=== PATIENT | female | born 1970 | race Caucasian/White ===

== ENCOUNTER 2017-03-18 17:10 | Emergency (ER) | payer SELFPAY ==
[~2017-03-18] VITALS: Ht 152.4 cm; Wt 48.2 kg
[~2017-03-18 17:10] MED LIST: PERCOCET 325 MG1 TA3 PO; TORADOL 10MG TA10 MG PO
[2017-03-18 17:13] VITALS: TEMP 98.6
[2017-03-18] MEDS ORDERED: PRILOSEC 20MG20 MG PO (17:27)
[2017-03-18] MEDS ORDERED: ZYRTEC 10MG10 MG PO (17:28)
[2017-03-18 17:45] LABS: BASO % 0.3 % (0.0-2.0); EOS # 0.1 (0.0-0.7); EOS % 0.4 % (0-4.0); GRAN # 11.7 (1.4-6.5); GRAN % 76.9 % (42.2-75.2); HEMATOCRIT 38.9 % (37.0-47.0); HEMOGLOBIN 13.5 g/dl (12.5-16.0); LYMPH # 1.8 (1.2-3.4); MEAN CELL VOLUME 85 fl (80.0-100.0); MEAN CORPUSCULAR HEMOGLOBIN 29 pg (27.0-31.0); MEAN CORPUSCULAR HGB CONC 35 g/dl (33.0-37.0); MEAN PLATELET VOLUME 11.3 fl (7.4-10.4); MONO # 1.5 (0.1-0.6); MONO % 9.8 % (1.7-9.3); PLATELET COUNT 159 K/mm3 (130-400); REDCELL DISTRIBUTION WIDTH-CV 13.2 % (11.5-14.5); WHITE BLOOD COUNT 15.2 K/mm3 (4.8-10.8)
[2017-03-18 17:49] LABS: INR 1.1 (0.8-3.0); PROTHROMBIN TIME 12.6 SECONDS (9.7-12.8)
[2017-03-18 17:52] LABS: PARTIAL THROMBOPLASTIN TIME 28.2 SECONDS (26.0-37.0)
[2017-03-18 17:55] LABS: ADJUSTED CALCIUM 9.2 mg/dL (8.4-10.2); ALBUMIN 3.6 gm/dL (3.5-5.0); BILIRUBIN,TOTAL 0.7 mg/dL (0.0-1.0); CALCIUM 8.9 mg/dL (8.4-10.2); CREATININE, serum 0.93 mg/dL (0.52-1.25); POTASSIUM 3.1 mmol/L (3.4-5.0); TOTAL PROTEIN 6.7 gm/dL (6.4-8.2)
[2017-03-18 19:41] VITALS: BP 171/89; PULSE 80
== END 2017-03-18 20:25 | disposition short-term general hospital (02) ==
LOC: COL.ER 17:10
PROVIDERS: Emergency Medicine
DX: I73.9 Peripheral vascular disease, unspecified (principal); F17.210 Nicotine dependence, cigarettes, uncomplicated
CPT/HCPCS: J1644; J2270

== ENCOUNTER 2021-01-31 15:45 | Outpatient (RCR) | payer MEDICARE, OTHER ==
[~2021-01-31 15:45] MED LIST changes: +PRILOSEC 20MG20 MG PO; +ZYRTEC 10MG10 MG PO
== END 2021-02-01 | disposition home or self-care (01) ==
LOC: MKS.ESL.PT
DX: L89.90 Pressure ulcer of unspecified site, unspecified stage (principal); Z89.611 Acquired absence of right leg above knee

== ENCOUNTER 2021-04-23 13:04 | Outpatient (RCR) | payer MEDICARE, OTHER | END 2021-06-22 | LOC: MKS.ESL.OT | DX: Z96.651 Presence of right artificial knee joint (principal) ==

== ENCOUNTER 2021-04-25 15:00 | Outpatient (RCR) | payer MEDICARE, OTHER | END 2021-05-14 | LOC: MKS.ESL.PT | DX: T14.8XXA Other injury of unspecified body region, initial encounter (principal); Z96.661 Presence of right artificial ankle joint ==

== ENCOUNTER 2021-10-08 14:31 | Outpatient (RCR) | payer MEDICARE, OTHER | END 2021-10-20 | LOC: MKS.ESL.PT | DX: Z96.651 Presence of right artificial knee joint (principal) ==

== ENCOUNTER 2021-10-24 15:00 | Outpatient (RCR) | payer MEDICARE, OTHER | END 2021-11-20 | LOC: MKS.ESL.PT | DX: Z96.651 Presence of right artificial knee joint (principal) ==

== ENCOUNTER 2022-10-16 14:41 | Outpatient (RCR) | payer MEDICARE, OTHER | END 2022-10-20 | LOC: MKS.ESL.OT | DX: S78.111D Complete traumatic amputation at level between right hip and knee, subsequent encounter (principal); S98.212 Complete traumatic amputation of two or more left lesser toes; Z89.611 Acquired absence of right leg above knee; X58.XXXD Exposure to other specified factors, subsequent encounter ==

== ENCOUNTER 2023-06-04 16:01 | Outpatient (RCR) | payer MEDICARE | END 2023-06-22 | LOC: MKS.ESL.OT | DX: Z89.611 Acquired absence of right leg above knee (principal) ==